=== PATIENT | male | born 1955 | race Caucasian/White ===

== ENCOUNTER 2019-12-20 11:05 | Outpatient (CLI) | payer OTHER ==
[2019-12-20 12:35] LABS: BASOPHILS # (AUTO) 0.1 X10'3 (0-0.2); BASOPHILS % (AUTO) 0.8 % (0-1); EOSINOPHILS # (AUTO) 0.2 X10'3 (0-0.9); EOSINOPHILS % (AUTO) 3.3 % (0-6); HEMATOCRIT 48.6 % (42.0-52.0); HEMOGLOBIN 16.4 g/dl (14.0-17.9); LYMPHOCYTES # (AUTO) 1.7 X10'3 (1.1-4.8); LYMPHOCYTES % (AUTO) 24.9 % (21-51); MEAN CORPUSCULAR HEMOGLOBIN 32.9 PG (27.0-31.0); MEAN CORPUSCULAR HGB CONC 33.7 g/dL (33.0-36.5); MEAN CORPUSCULAR VOLUME 97.5 FL (78-98); MONOCYTES # (AUTO) 0.7 X10'3 (0-0.9); MONOCYTES % (AUTO) 10.2 % (2-12); NEUTROPHILS # (AUTO) 4.1 X10'3 (1.8-7.7); NEUTROPHILS % (AUTO) 60.8 % (42-75); PLATELET COUNT 156 X10'3 (140-440); RED BLOOD COUNT 4.98 X10'6 (4.70-6.10); RED CELL DISTRIBUTION WIDTH 13.7 % (11.5-14.5); WHITE BLOOD COUNT 6.8 X10'3 (4.5-11.0)
[2019-12-20 12:40] LABS: PARTIAL THROMBOPLASTIN TIME 31 SECONDS (22-32)
[2019-12-20 12:41] LABS: ALBUMIN 4.1 G/DL (3.4-5.0); ANION GAP 7 (8-16); BLOOD UREA NITROGEN 20 MG/DL (7-18); BUN/CREATININE RATIO 29.4 (5.4-32.0); CALCIUM 9.4 MG/DL (8.5-10.1); CHLORIDE 106 MMOL/L (99-107); CREATININE 0.68 MG/DL (0.60-1.10); GLUCOSE 109 MG/DL (70-104); SODIUM 140 MMOL/L (135-145); TOTAL CARBON DIOXIDE 26.9 MMOL/L (24-32); eGFR > 90 ML/MIN
== END 2019-12-20 23:59 | disposition home or self-care (01) ==
LOC: LAB 11:05
PROVIDERS: ATTEND Internal Medicine Interventional Cardiology
DX: I48.91 Unspecified atrial fibrillation (principal); I10 Essential (primary) hypertension; E78.49 Other hyperlipidemia; G47.10 Hypersomnia, unspecified; R06.02 Shortness of breath; R94.31 Abnormal electrocardiogram [ECG] [EKG]
CPT/HCPCS: 36415; 80048; 85025; 85610; 85730

== ENCOUNTER 2019-12-23 05:10 | Day surgery (SDC) | payer OTHER ==
[2019-12-23] VITALS (11 sets, daily range): BP systolic 120–138; BP diastolic 70–89
[~2019-12-23] VITALS: Ht 180.3 cm; Wt 85.7 kg
[2019-12-23] MEDS ORDERED: normal saline 1000ml 1,000 ML IV SCH (05:25)
[2019-12-23] MEDS ORDERED: LORazepam 1 MG tablet PO PRN (05:35)
[2019-12-23] MEDS ORDERED: MIDAZolam 5mg/ml 2ml vial IV PRN (05:35)
[2019-12-23] MEDS ORDERED: fentaNYL/PF 50MCG/1 ML 2ML syringe IV PRN (05:35)
[2019-12-23] MEDS ORDERED: ASCO-139 PO (05:37)
[2019-12-23] MEDS ORDERED: LISI-604 PO (05:37)
[2019-12-23] MEDS ORDERED: ATOR20TA66 PO (05:37)
[2019-12-23] MEDS ORDERED: MULT-1085 PO (05:37)
[2019-12-23] MEDS ORDERED: ACYC-202 PO (05:37)
[2019-12-23] MEDS ORDERED: APIX5TAB3 PO (05:37)
[2019-12-23] MEDS ORDERED: KEN0.1O TOP (05:37)
[2019-12-23] MEDS ORDERED: HYDR-3968 PO (05:37)
[2019-12-23] MEDS ORDERED: TURM500C4 PO (05:37)
[2019-12-23] MEDS ORDERED: METO50TA17 PO (05:37)
[2019-12-23] MEDS ORDERED: KRIL1CAP19 (05:37)
[2019-12-23] MEDS ORDERED: NAPR-996 PO (05:37)
[2019-12-23] MEDS ORDERED: MIDAZolam 1mg/ml 10ml vial IV PRN (06:51)
== END 2019-12-23 09:45 | disposition home or self-care (01) ==
LOC: SSTAY O 05:10
PROVIDERS: ATTEND Internal Medicine Interventional Cardiology
DX: I48.91 Unspecified atrial fibrillation (principal); E11.9 Type 2 diabetes mellitus without complications; I10 Essential (primary) hypertension; E78.5 Hyperlipidemia, unspecified; Z79.899 Other long term (current) drug therapy; Z87.891 Personal history of nicotine dependence
CPT/HCPCS: 92960; 93005; 94760; J2250; J3010; J7030

== ENCOUNTER 2020-05-28 08:30 | Emergency (ER) | payer OTHER ==
[~2020-05-28] VITALS: Ht 180.3 cm; Wt 89.8 kg
[~2020-05-28 08:30] MED LIST: ACYC-202 PO; APIX5TAB3 PO; ASCO-139 PO; ATOR20TA66 PO; HYDR-3968 PO; KEN0.1O TOP; KRIL1CAP19; LISI-604 PO; METO50TA17 PO; MULT-1085 PO; NAPR-996 PO; TURM500C4 PO
[2020-05-28] MEDS ORDERED: oxyCODONE IR 5mg (immed. release) tablet PO ONE (09:05)
--- NOTE | 2020-05-28 10:08 | NUR ---
PT REPOSITIONED IN BED SUPPORTED WITH PILLOW ICE PACK APPLIED ON LFT KNEE ,ANKLE AND LEG.
[2020-05-28 10:30] VITALS: BP 150/76
== END 2020-05-28 10:32 | disposition home or self-care (01) ==
LOC: ER 08:30
DX: S80.12XA Contusion of left lower leg, initial encounter (principal); Z79.01 Long term (current) use of anticoagulants; Z79.899 Other long term (current) drug therapy; W17.89XA Other fall from one level to another, initial encounter; Y93.89 Activity, other specified; Y92.89 Other specified places as the place of occurrence of the external cause; Y99.8 Other external cause status
CPT/HCPCS: 73564; 73590; 73630; 99284

== ENCOUNTER 2024-07-12 10:03 | Day surgery (SDC) | payer OTHER ==
[2024-07-08 12:55] LABS: BASOPHILS # (AUTO) 0.1 X10'3 (0-0.2); BASOPHILS % (AUTO) 0.8 % (0-1); EOSINOPHILS # (AUTO) 0.2 X10'3 (0-0.9); EOSINOPHILS % (AUTO) 2.4 % (0-6); HEMATOCRIT 50.2 % (42.0-52.0); HEMOGLOBIN 17.1 g/dl (14.0-17.9); LYMPHOCYTES # (AUTO) 2.2 X10'3 (1.1-4.8); LYMPHOCYTES % (AUTO) 28.8 % (21-51); MEAN CORPUSCULAR HEMOGLOBIN 32.2 PG (27.0-31.0); MEAN CORPUSCULAR HGB CONC 34.1 g/dL (33.0-36.5); MEAN CORPUSCULAR VOLUME 94.4 FL (78-98); MEAN PLATELET VOLUME 7.6 FL (7.4-10.4); MONOCYTES # (AUTO) 0.7 X10'3 (0-0.9); NEUTROPHILS # (AUTO) 4.6 X10'3 (1.8-7.7); PLATELET COUNT 250 X10'3 (140-440); RED BLOOD COUNT 5.32 X10'6 (4.70-6.10); RED CELL DISTRIBUTION WIDTH 13.3 % (11.5-14.5); WHITE BLOOD COUNT 7.8 X10'3 (4.5-11.0)
[2024-07-08 13:05] LABS: APTT 33 SECONDS (22-32); INR 1.1 INR; PROTHROMBIN TIME 11.4 SECONDS (9.0-12.0)
[2024-07-08 13:15] LABS: ALBUMIN 4.2 G/DL (3.4-5.0); ANION GAP 5 (8-16); BLOOD UREA NITROGEN 16 MG/DL (7-18); BUN/CREATININE RATIO 33.3 (10.0-20.0); CALCIUM 9.3 MG/DL (8.5-10.1); CHLORIDE 100 MMOL/L (99-107); CHOL/HDL RATIO 3.6 (0.00-4.99); CHOLESTEROL 148 MG/DL (0-200); CREATININE 0.48 MG/DL (0.60-1.10); GLUCOSE 81 MG/DL (70-104); HDL CHOLESTEROL 41 MG/DL (35-60); LDL CHOLESTEROL 86 MG/DL (50-100); POTASSIUM 4.7 MMOL/L (3.5-5.1); SODIUM 133 MMOL/L (135-145); TOTAL CARBON DIOXIDE 28.3 MMOL/L (24-32); TRIGLYCERIDES 150 MG/DL (20-135); eGFR > 90 ML/MIN
[2024-07-12] VITALS (10 sets, daily range): BP systolic 115–138; BP diastolic 58–76; PULSE 62–81; RESP 16; TEMP 97.7; O2SAT 93–97
[~2024-07-12] VITALS: Ht 180.3 cm; Wt 70.4 kg
[~2024-07-12 10:03] MED LIST changes: +ACYC-128 PO; -ACYC-202 PO; -LISI-604 PO; +LISI5TAB22 PO
[2024-07-12] MEDS ORDERED: SEMA0.258 (10:40)
[2024-07-12] MEDS ORDERED: SOTA80TA PO (10:41)
[2024-07-12] MEDS: diphenhydrAMINE 25mg capsule PO PRN (11:24)
[2024-07-12] MEDS: LORazepam 0.5 MG tablet PO PRN (11:24)
[2024-07-12] MEDS: normal saline 1,000 ML IV SCH (11:25)
[2024-07-12] MEDS ORDERED: LIDOcaine 1% (10mg/ml) 2ml vial ONE (11:50)
[2024-07-12] MEDS ORDERED: verapamil 2.5 mg/ml inj IV ONE (11:50)
[2024-07-12] MEDS ORDERED: iohexol 350MG/ML 100ml bottle IV ONE (11:51)
[2024-07-12] MEDS ORDERED: heparin 1,000unit/ml 10ml vial 10 ML ONE (11:51)
[2024-07-12] MEDS ORDERED: midazolam 1 mg/ML 2ml injection ONE (11:51)
[2024-07-12] MEDS ORDERED: fentaNYL/PF 50MCG/1 ML 2ML syringe ONE (11:51)
[2024-07-12] MEDS ORDERED: nitroGLYCERIN 500mcg/5mL D5W 5 ML IV ONE (11:52)
[2024-07-12] MEDS ORDERED: iohexol 350 MG/ML 50ML vial IV ONE (13:27)
[2024-07-12] MEDS ORDERED: HYDROcodone/acetaminophen 5mg/325mg tablet PO PRN (14:05)
[2024-07-12] MEDS ORDERED: HYDROcodone/acetaminophen 10/325mg tab PO PRN (14:05)
== END 2024-07-12 17:00 | disposition home or self-care (01) ==
LOC: SSTAY O 10:03
PROVIDERS: ATTEND Student in an Organized Health Care Education/Training Program
DX: R94.39 Abnormal result of other cardiovascular function study (principal); I25.10 Atherosclerotic heart disease of native coronary artery without angina pectoris; I49.3 Ventricular premature depolarization; I10 Essential (primary) hypertension; E11.9 Type 2 diabetes mellitus without complications; E78.00 Pure hypercholesterolemia, unspecified; I48.0 Paroxysmal atrial fibrillation; Z98.890 Other specified postprocedural states
CPT/HCPCS: 36415; 80048; 80061; 82948; 85025; 85610; 85730; 93005; 93458; 99152; J1644; J2003; J2250; J3010; J3490; J7030; Q0163; Q9967; 99153; A6258; A6402; C1769; C1894

== ENCOUNTER 2024-10-25 09:58 | Day surgery (SDC) | payer BC ==
[2024-10-21 11:08] LABS: BASOPHILS % (AUTO) 0.5 % (0-1); EOSINOPHILS # (AUTO) 0.1 X10'3 (0-0.9); EOSINOPHILS % (AUTO) 1.7 % (0-6); HEMATOCRIT 46.9 % (42.0-52.0); HEMOGLOBIN 15.2 g/dl (14.0-17.9); LYMPHOCYTES # (AUTO) 0.9 X10'3 (1.1-4.8); MEAN CORPUSCULAR HEMOGLOBIN 27.9 PG (27.0-31.0); MEAN CORPUSCULAR HGB CONC 32.3 g/dL (33.0-36.5); MEAN CORPUSCULAR VOLUME 86.3 FL (78-98); MEAN PLATELET VOLUME 7.4 FL (7.4-10.4); MONOCYTES # (AUTO) 0.6 X10'3 (0-0.9); MONOCYTES % (AUTO) 8.1 % (2-12); NEUTROPHILS # (AUTO) 6.1 X10'3 (1.8-7.7); NEUTROPHILS % (AUTO) 77.7 % (42-75); PLATELET COUNT 277 X10'3 (140-440); RED BLOOD COUNT 5.43 X10'6 (4.70-6.10); RED CELL DISTRIBUTION WIDTH 15.8 % (11.5-14.5); WHITE BLOOD COUNT 7.9 X10'3 (4.5-11.0)
[2024-10-21 11:15] LABS: ALBUMIN 3.7 G/DL (3.4-5.0); ANION GAP 7 (8-16); BLOOD UREA NITROGEN 16 MG/DL (7-18); BUN/CREATININE RATIO 43.2 (10.0-20.0); CALCIUM 9.3 MG/DL (8.5-10.1); CHLORIDE 103 MMOL/L (99-107); CREATININE 0.37 MG/DL (0.60-1.10); GLUCOSE 109 MG/DL (70-104); POTASSIUM 4.6 MMOL/L (3.5-5.1); SODIUM 139 MMOL/L (135-145); TOTAL CARBON DIOXIDE 29.3 MMOL/L (24-32); eGFR > 90 ML/MIN
[2024-10-21 11:17] LABS: APTT 32 SECONDS (22-32); INR 1.1 INR; PROTHROMBIN TIME 11.9 SECONDS (9.0-12.0)
[2024-10-25] VITALS (9 sets, daily range): BP systolic 113–134; BP diastolic 67–80; PULSE 68–83; RESP 16; TEMP 98; O2SAT 93–98
[~2024-10-25] VITALS: Ht 180.3 cm; Wt 72.4 kg
[~2024-10-25 09:58] MED LIST changes: -ACYC-128 PO; -ASCO-139 PO; -ATOR20TA66 PO; +ATOR40TA72 PO; +ENOX40SY7 SQ; -HYDR-3968 PO; -KEN0.1O TOP; -KRIL1CAP19; +LISI10TA27 PO; -LISI5TAB22 PO; -METO50TA17 PO; -MULT-1085 PO; -NAPR-996 PO; +SEMA0.258 SQ; +SOTA80TA PO; -TURM500C4 PO
[2024-10-25] MEDS ORDERED: LORA10CA PO (11:23)
[2024-10-25] MEDS ORDERED: HYDR-3972 PO (11:23)
[2024-10-25] MEDS ORDERED: CETI10TA14 PO (11:23)
[2024-10-25] MEDS ORDERED: ASCO100T12 PO (11:23)
[2024-10-25] MEDS ORDERED: TURM500C4 PO (11:23)
[2024-10-25] MEDS ORDERED: KRIL1CAP19 PO (11:23)
[2024-10-25] MEDS ORDERED: METO25TA6 PO (11:23)
[2024-10-25] MEDS ORDERED: MULT-1085 PO (11:23)
[2024-10-25] MEDS: diphenhydrAMINE 25mg capsule PO PRN (11:34)
[2024-10-25] MEDS: LORazepam 0.5 MG tablet PO PRN (11:34)
[2024-10-25] MEDS: normal saline 1,000 ML IV SCH (11:36)
[2024-10-25] MEDS ORDERED: fentaNYL/PF 50MCG/1 ML 2ML syringe ONE (12:34)
[2024-10-25] MEDS ORDERED: LIDOcaine 1% 30ml preserv. free vial ONE (12:34)
[2024-10-25] MEDS ORDERED: heparin 1,000unit/ml 10ml vial 10 ML ONE (12:34)
[2024-10-25] MEDS ORDERED: midazolam 1 mg/ML 2ml injection ONE ×3 (12:34→14:23)
[2024-10-25] MEDS ORDERED: iohexol 350MG/ML 100ml bottle IV ONE ×2 (12:34→14:22)
[2024-10-25] MEDS ORDERED: nitroGLYCERIN 500mcg/5mL D5W 5 ML IV ONE (13:38)
[2024-10-25] MEDS ORDERED: verapamil 2.5 mg/ml inj IV ONE (13:38)
[2024-10-25] MEDS ORDERED: aspirin 325mg tablet ONE (14:13)
[2024-10-25] MEDS ORDERED: clopidogrel 300mg tablet ONE (14:13)
[2024-10-25] MEDS ORDERED: CLOP75TA34 PO (15:02)
[2024-10-25] MEDS ORDERED: ASPI-1265 PO (15:02)
[2024-10-25] MEDS ORDERED: HYDROcodone/acetaminophen 5mg/325mg tablet PO PRN (15:10)
[2024-10-25] MEDS ORDERED: HYDROcodone/acetaminophen 10/325mg tab PO PRN (15:10)
== END 2024-10-25 17:30 | disposition home or self-care (01) ==
LOC: SSTAY O 09:58
PROVIDERS: ATTEND Student in an Organized Health Care Education/Training Program
DX: I25.10 Atherosclerotic heart disease of native coronary artery without angina pectoris (principal); I11.0 Hypertensive heart disease with heart failure; I48.0 Paroxysmal atrial fibrillation; I50.9 Heart failure, unspecified; E11.9 Type 2 diabetes mellitus without complications; E78.5 Hyperlipidemia, unspecified; Z79.899 Other long term (current) drug therapy
CPT/HCPCS: 36415; 80048; 82948; 85025; 85610; 85730; 93005; 93459; 99152; 99153; C1874; C9600; J1644; J2003; J2250; J3010; J3490; J7030; Q0163; Q9967; 93458; A6258; A6402; C1725; C1751; C1769; C1894